=== PATIENT | male | born 1985 | race Caucasian/White ===

== ENCOUNTER 2023-01-20 10:01 | Observation (INO) ==
[2023-01-20 10:59] LABS: Basophils # (auto) 0.06 K/uL (0-0.2); Basophils % (auto) 0.6 %; Eosinophils # (auto) 0.11 K/uL (0-0.50); Eosinophils % (auto) 1.2 %; Hematocrit (blood only) 45.8 % (42.0-52.0); Hemoglobin 15.8 g/dl (14.0-18.0); Immature Granulocytes # (auto) 0.03 K/uL (0.01-0.20); Immature Granulocytes % (auto) 0.3 %; Lymphocytes # (auto) 1.88 K/uL (1.2-3.4); Mean Corpuscular Hemoglobin 30.7 pg (25.0-34.0); Mean Corpuscular Hgb Conc 34.5 g/dL (32.0-36.0); Mean Corpuscular Volume 88.9 fL (80.0-100.0); Mean Platelet Volume 10.8 fL (9.4-12.4); Monocytes # (auto) 0.96 K/uL (0.11-0.59); Monocytes % (auto) 10.2 %; Neutrophils # (auto) 6.35 K/uL (1.40-6.50); Neutrophils % (auto) 67.7 %; Platelet Count 249 K/uL (130-400); RDW Coefficient of Variation 12.7 % (11.5-14.5); RDW Standard Deviation 41.5 fL (36.4-46.3); Red Blood Count 5.15 M/uL (4.70-6.10); White Blood Count 9.39 K/ul (4.8-10.8)
[2023-01-20] MEDS ORDERED: amLODIPine BESYLATE 5 MG TAB PO ONE (11:08)
[2023-01-20] MEDS ORDERED: LOSARTAN POTASSIUM 50 MG TAB PO STA (11:08)
[2023-01-20] MEDS ORDERED: LABETALOL HCL IV 5 MG/ML 20ML IV STA ×2 (11:09→12:06)
[2023-01-20 11:12] LABS: Albumin Globulin Ratio 1.5 (0.9-2); Albumin Level 4.7 gm/dl (3.4-5.0); BUN Creatinine Ratio 17.3 (10-20); Bilirubin,Total 0.6 mg/dl (0.2-1.0); Calcium 9.9 mg/dl (8.6-10.3); Creatinine Clr Calc Pharmacy 54.9 ml/min; Est GFR (African American) 41.4 ml/min; Est GFR (Non-African American) 35.7 ml/min; Globulin 3.2 gm/dl (2.5-4.0); Potassium 4.4 mmol/L (3.5-5.1); Total Protein 7.9 gm/dl (6.0-8.3)
--- NOTE | 2023-01-20 11:19 | XRay Report ---
SINGLE VIEW CHEST CLINICAL HISTORY: Atypical chest pain. FINDINGS: 2 AP, portable, upright chest radiographs are obtained. No prior studies are available for comparison at the time of dictation. The cardiomediastinal silhouette is unremarkable. The lungs and pleural spaces are clear. No pneumothorax is seen. The bony thorax is grossly intact. IMPRESSION: No active disease in the chest. ACT 112: Negative or not required by law. Electronically signed by: Oliverio Campos M.D. 01/20/2023 11:18 AM
[2023-01-20 11:32] LABS: Partial Thromboplastin Ratio 1.2; Partial Thromboplastin Time 32.9 Seconds (21.0-31.0); Prothrombin Time 10.7 Seconds (9.0-12.0)
[2023-01-20 11:34] LABS: Troponin I High Sensitivity 93.2 pg/ml (0-20)
[2023-01-20] MEDS ORDERED: ASPIRIN CHEW 324 MG PO STA (11:44)
--- NOTE | 2023-01-20 12:01 | Emergency Department Note ---
Impression & Plan Precordial chest pain, Hypertension, Elevated troponin, EFREN (acute kidney injury) ED Provider Note NAME: ZHAO THOMAS AGE: 37 SEX: M : 1985 ARRIVES VIA: Walk-In INFORMANT: [Patient] ED PROVIDER(S): [Oliverio Mc MD] CHIEF COMPLAINT: Chest pain HISTORY OF PRESENT ILLNESS: The patient is a 37-year-old male who has had 10 days of a pulsating headache that is of 4-6 on a scale of 1-10. He states that for the last 2 days, he has had some chest pain that goes into his arms and neck. He did vomit once. He took some aspirin and Tylenol which helped. He has had fatigue. He does think his symptoms are worse with exertion. There has been no fever, no chills or cough. He did run out of his blood pressure medication 4-5 months ago. He was on amlodipine and losartan. For the last 2 days, the patient has been taking propranolol. He uses this as needed for anxiety. It has not helped his blood pressure. PMHx/PSHx: See Below SOCIAL HISTORY: See Below. PHYSICAL EXAM: GENERAL: Patient is in no acute distress. HEENT: No acute trauma, normocephalic atraumatic, mucous membranes moist, no nasal congestion. NECK: No stridor, no adenopathy, no meningismus, trachea is midline. LUNGS: Clear to auscultation bilaterally, no wheeze, no rhonchi, breath sounds equal. HEART: Without murmurs gallops or rubs, regular rate and rhythm. ABDOMEN: Soft, nontender, bowel sounds positive, no peritonitis. EXTREMITIES: No cyanosis or edema, full range of motion of all the joints without pain or difficulty, no signs for acute trauma. NEUROLOGIC: Oriented x 3, no acute motor or sensory deficits, no focal weakness. SKIN: No rash, no jaundice, no diaphoresis. DIFFERENTIAL DIAGNOSIS: Uncontrolled hypertension, LA, cardiac ischemia, aortic dissection, musculoskeletal pain, among others. EMERGENCY DEPARTMENT COURSE/PROCEDURES: Prior/Outside records reviewed: Family practice note. ECG per my interpretation: Indication was chest pain. The ECG shows a normal sinus rhythm with a rate of 81. There is no ST elevation, no PVCs. The QTc is 406. Continuous Cardiac Monitoring per my interpretation: An order was placed for continuous cardiac monitoring. The monitor shows a rate of 76 with normal sinus rhythm. Critical Care Note: I have personally spent 43 minutes of critical care time in the direct management of this patient. This includes bedside care, interpretation of diagnostic studies, and testing, discussion with consultants, patient, and family members, and other required patient management activities. This 43 minutes is in excess of all separately billable procedures. MEDICAL DECISION MAKING: There is no leukocytosis or concerning anemia. There is a normal platelet count. No concerning coagulopathy. Patient does have some mild acute kidney injury with a creatinine of 2.26. This is above his baseline creatinine value. No electrolyte abnormality in need of emergent correction. ECG shows a normal sinus rhythm, no ST elevation. Cardiac enzyme testing x1 is elevated, the troponin elevation could be secondary to the higher blood pressure, his renal failure or potentially cardiac injury. Chest film per my review did not show mediastinal widening, pneumonia or pneumothorax. The patient received oral amlodipine and oral losartan. He was given IV labetalol for his elevated blood pressure, a second dose of IV labetalol was given. He was given oral aspirin. The patient presents with chest pain and higher blood pressure. He does have an elevated troponin. Given his findings, given his presentation, a hospital stay is warranted. I spoke with the patient and case management, the on-call hospitalist was consulted. DISPOSITION: Patient's presentation and findings warrant a hospital stay. Past Med/Surg History Medical History Polycystic kidney Surgical History S/P wisdom tooth extraction Family History Grandmother (Paternal) Stroke Grandfather (Paternal) Stroke Mother PKD (polycystic kidney disease) Denies family history of Ovarian cancer Prostate cancer Myocardial infarction Breast cancer Colorectal cancer Social History Smoking Status: Never smoker Second Hand Exposure: No; Do You Dip or Chew Tobacco: No; Hx Alcohol Use: Yes Alcohol type: beer Alcohol Intake Frequency: 2-4 x/Month Hx Substance Use: No Preferred Language: Bahraini Communication Ability: Effective Visual Impairment: No Limitations Hearing Ability: Normal Media Relations Intern Required: No Beliefs That Will Affect Care: None marital status: Current Living Situation: Family current occupational status: employed 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 Feels Safe at Home: Yes Safety Concerns: Feels Safe At This Time Childhood Exposure to Second-Hand Smoke: No Diet: regular caffeine: Yes during the past year weight has: remained stable Dental Care, Regularly: No Physical Activity Frequency: Daily Seatbelt Use: always Sunscreen Use: Yes Assistive Devices: Glasses Allergies Allergies Allergy/AdvReac Type Severity Reaction Status Date / Time meperidine [From Demerol] AdvReac Unknown Hives Verified 01/20/23 11:45 Home Meds Home Medications Medication Instructions Recorded Confirmed propranolol 20 mg tablet 20 mg PO DAILY PRN Anxiety 01/20/23 01/20/23 Previous Rx's Medication Instructions Recorded losartan 100 mg tablet 100 mg PO DAILY #90 tabs 08/22/22 paroxetine HCl 40 mg tablet 40 mg PO BID #180 tabs 08/26/22 amlodipine 10 mg tablet 10 mg PO DAILY #90 tabs 10/02/22 Results & Data (ED) Vital Signs Vital Signs - 24 hr 01/20/23 10:13 01/20/23 10:29 01/20/23 10:29 Temperature 36.1 C L Temperature Source Temporal Artery Scan Pulse Rate 86 86 Pulse Rate from SpO2 Sensor Pulse Rhythm Regular Regular Pulse Strength Normal Respiratory Rate 20 20 Respiratory Effort / Characteristics Non-Labored Spontaneous Respiratory Depth Normal Respiratory Pattern Regular Blood Pressure 191/141 H Blood Pressure Mean 157 Blood Pressure Position Sitting Pulse Oximetry 98 98 98 Oxygen Delivery Method Room Air Room Air Room Air Sepsis Recent Fever Within 48 Hours No Sepsis New/Unexplained Change in Mental Status No Sepsis Action Taken by Nursing No Action Required 01/20/23 10:31 01/20/23 10:38 01/20/23 10:49 Temperature Temperature Source Pulse Rate 69 73 Pulse Rate from SpO2 Sensor 74 Pulse Rhythm Pulse Strength Respiratory Rate 16 Respiratory Effort / Characteristics Non-Labored Spontaneous Respiratory Depth Normal Respiratory Pattern Blood Pressure 171/122 H Blood Pressure Mean 138 Blood Pressure Position Pulse Oximetry 98 Oxygen Delivery Method Room Air Sepsis Recent Fever Within 48 Hours Sepsis New/Unexplained Change in Mental Status Sepsis Action Taken by Nursing 01/20/23 11:42 01/20/23 11:00 01/20/23 11:30 Temperature Temperature Source Pulse Rate 76 75 73 Pulse Rate from SpO2 Sensor 75 74 Pulse Rhythm Pulse Strength Respiratory Rate 17 21 Respiratory Effort / Characteristics Respiratory Depth Respiratory Pattern Blood Pressure 169/133 H 166/124 H 169/133 H Blood Pressure Mean 138 145 Blood Pressure Position Pulse Oximetry 96 98 Oxygen Delivery Method Sepsis Recent Fever Within 48 Hours Sepsis New/Unexplained Change in Mental Status Sepsis Action Taken by Nursing 01/20/23 12:00 01/20/23 12:05 01/20/23 12:32 Temperature Temperature Source Pulse Rate 69 77 Pulse Rate from SpO2 Sensor 68 77 Pulse Rhythm Pulse Strength Respiratory Rate 20 15 Respiratory Effort / Characteristics Respiratory Depth Respiratory Pattern Blood Pressure 167/125 H 186/143 H 177/128 H Blood Pressure Mean 139 157 Blood Pressure Position Pulse Oximetry 96 99 Oxygen Delivery Method Sepsis Recent Fever Within 48 Hours Sepsis New/Unexplained Change in Mental Status Sepsis Action Taken by Nursing 01/20/23 12:00 01/20/23 12:30 01/20/23 13:24 Temperature Temperature Source Pulse Rate 72 74 Pulse Rate from SpO2 Sensor 70 Pulse Rhythm Pulse Strength Respiratory Rate 22 12 Respiratory Effort / Characteristics Respiratory Depth Respiratory Pattern Blood Pressure 167/125 H 177/128 H 188/134 H Blood Pressure Mean 144 152 Blood Pressure Position Pulse Oximetry 96 Oxygen Delivery Method Sepsis Recent Fever Within 48 Hours Sepsis New/Unexplained Change in Mental Status Sepsis Action Taken by [facility] Medications Current Medication List: was personally reviewed by me Laboratory Data Attestation: I reviewed the patient's lab results. 01/20/23 10:20 01/20/23 10:20 Lab Results 01/20/23 01/20/23 01/20/23 Range/Units 10:20 10:20 10:20 WBC 9.39 (4.8-10.8) K/ul RBC 5.15 (4.70-6.10) M/uL Hgb 15.8 (14.0-18.0) g/dl Hct 45.8 (42.0-52.0) % MCV 88.9 (80.0-100.0) fL MCH 30.7 (25.0-34.0) pg MCHC 34.5 (32.0-36.0) g/dL RDW Std Deviation 41.5 (36.4-46.3) fL RDW Coeff of Arnie 12.7 (11.5-14.5) % Plt Count 249 (130-400) K/uL MPV 10.8 (9.4-12.4) fL Immature Gran % (Auto) 0.3 % Neut % (Auto) 67.7 % Lymph % (Auto) 20.0 % [place] % (Auto) 10.2 % Eos % (Auto) 1.2 % Baso % (Auto) 0.6 % Neut # (Auto) 6.35 (1.40-6.50) K/uL Lymph # (Auto) 1.88 (1.2-3.4) K/uL [place] # (Auto) 0.96 H (0.11-0.59) K/uL Eos # (Auto) 0.11 (0-0.50) K/uL Baso # (Auto) 0.06 (0-0.2) K/uL Immature Gran # (Auto) 0.03 (0.01-0.20) K/uL PT 10.7 (9.0-12.0) Seconds INR 1.0 (0.9-1.1) APTT 32.9 H (21.0-31.0) Seconds PTT Ratio 1.2 Sodium 137 (136-145) mmol/L Potassium 4.4 (3.5-5.1) mmol/L Chloride 105 (98-107) mmol/L Carbon Dioxide 26 (21-32) mmol/L Anion Gap 6 (3-11) BUN 39 H (6-23) mg/dl Creatinine 2.26 H (0.6-1.4) mg/dl Est Cr Clr Drug Dosing 54.9 ml/min Est GFR ( Amer) 41.4 ml/min Est GFR (Non-Af Amer) 35.7 ml/min BUN/Creatinine Ratio 17.3 (10-20) Glucose 93 (70-99(Fasting)) mg/dl Calcium 9.9 (8.6-10.3) mg/dl Total Bilirubin 0.6 (0.2-1.0) mg/dl AST 21 (13-39) U/L ALT 17 (7-52) U/L Alkaline Phosphatase 70 (34-104) U/L Troponin I High Sens 93.2 H* (0-20) pg/ml Total Protein 7.9 (6.0-8.3) gm/dl Albumin 4.7 (3.4-5.0) gm/dl Globulin 3.2 (2.5-4.0) gm/dl Albumin/Globulin Ratio 1.5 (0.9-2) 01/20/23 Range/Units 12:55 WBC (4.8-10.8) K/ul RBC (4.70-6.10) M/uL Hgb (14.0-18.0) g/dl Hct (42.0-52.0) % MCV (80.0-100.0) fL MCH (25.0-34.0) pg MCHC (32.0-36.0) g/dL RDW Std Deviation (36.4-46.3) fL RDW Coeff of Arnie (11.5-14.5) % Plt Count (130-400) K/uL MPV (9.4-12.4) fL Immature Gran % (Auto) % Neut % (Auto) % Lymph % (Auto) % [place] % (Auto) % Eos % (Auto) % Baso % (Auto) % Neut # (Auto) (1.40-6.50) K/uL Lymph # (Auto) (1.2-3.4) K/uL [place] # (Auto) (0.11-0.59) K/uL Eos # (Auto) (0-0.50) K/uL Baso # (Auto) (0-0.2) K/uL Immature Gran # (Auto) (0.01-0.20) K/uL PT (9.0-12.0) Seconds INR (0.9-1.1) APTT (21.0-31.0) Seconds PTT Ratio Sodium (136-145) mmol/L Potassium (3.5-5.1) mmol/L Chloride (98-107) mmol/L Carbon Dioxide (21-32) mmol/L Anion Gap (3-11) BUN (6-23) mg/dl Creatinine (0.6-1.4) mg/dl Est Cr Clr Drug Dosing ml/min Est GFR ( Amer) ml/min Est GFR (Non-Af Amer) ml/min BUN/Creatinine Ratio (10-20) Glucose (70-99(Fasting)) mg/dl Calcium (8.6-10.3) mg/dl Total Bilirubin (0.2-1.0) mg/dl AST (13-39) U/L ALT (7-52) U/L Alkaline Phosphatase (34-104) U/L Troponin I High Sens 79.7 H* D (0-20) pg/ml Total Protein (6.0-8.3) gm/dl Albumin (3.4-5.0) gm/dl Globulin (2.5-4.0) gm/dl Albumin/Globulin Ratio (0.9-2) Administered Medications Labetalol HCl (Labetalol Hcl Iv 5 Mg/Ml 20ml) 10 mg IV Q1H PRN PRN Reason: sBP > 160 or dBP > 110 Stop: 02/19/23 16:59 Last Admin: 01/20/23 19:11 Dose: 10 mg Documented By: HOSEA Co-signed By: ROSAURA Paroxetine HCl (Paroxetine Hcl 20 Mg Tab) 40 mg PO BID DIANA Stop: 02/19/23 20:59 Last Admin: 01/20/23 19:42 Dose: 40 mg Documented By: HOSEA Discontinued Medications Amlodipine Besylate (Amlodipine Besylate 5 Mg Tab) 10 mg PO NOW ONE Stop: 01/20/23 11:09 Last Admin: 01/20/23 11:44 Dose: 10 mg Documented By: HENRIETTA Aspirin (Aspirin Chew 324 Mg) 324 mg PO NOW STA Stop: 01/20/23 11:45 Last Admin: 01/20/23 11:48 Dose: 324 mg Documented By: HENRIETTA Labetalol HCl (Labetalol Hcl Iv 5 Mg/Ml 20ml) 10 mg IV NOW STA Stop: 01/20/23 11:10 Last Admin: 01/20/23 11:42 Dose: 10 mg Documented By: HENRIETTA Co-signed By: LATIA Labetalol HCl (Labetalol Hcl Iv 5 Mg/Ml 20ml) 10 mg IV NOW STA Stop: 01/20/23 12:07 Last Admin: 01/20/23 12:32 Dose: 10 mg Documented By: HENRIETTA Co-signed By: LATIA Losartan Potassium (Losartan Potassium 50 Mg Tab) 100 mg PO NOW STA Stop: 01/20/23 11:09 Last Admin: 01/20/23 11:45 Dose: 100 mg Documented By: HENRIETTA Imaging Data Radiologist's Impression: Chest X-Ray 01/20/23 10:29 SINGLE VIEW CHEST CLINICAL HISTORY: Atypical chest pain. FINDINGS: 2 AP, portable, upright chest radiographs are obtained. No prior studies are available for comparison at the time of dictation. The cardiomediastinal silhouette is unremarkable. The lungs and pleural spaces are clear. No pneumothorax is seen. The bony thorax is grossly intact. IMPRESSION: No active disease in the chest. ACT 112: Negative or not required by law. Electronically signed by: Oliverio Campos M.D. 01/20/2023 11:18 AM Discharge Plan Visit Data Chief Complaint: Chest Pain Stated Complaint: CHEST PAIN INTO ARMS,HEADACHE,HIGH BP,NAUSEA, ED Provider: Olivreio Mc Discharge Problem: Precordial chest pain, Hypertension, Elevated troponin, EFREN (acute kidney injury) Patient Disposition: Admitted As Inpatient Condition: Fair Discharge Instructions Interventions: ED Discharge Assessment Last Done: 01/20/23 15:37
--- NOTE | 2023-01-20 13:03 | History & Physical Report ---
Date of Service January 20, 2023 Assessment & Plan (1) Hypertension: Plan: Restart his usual Losartan 100mg PO and amlodipine 10mg PO Labetalol 10mg IV q1h PRN for sBP > 160 or sBP > 110 while waiting for above medications to work Consult nephrology - for ongoing recommendations in setting of ADPKD, pt request change of service to [facility] nephrology (2) Polycystic kidney disease: Plan: Will defer decision regarding restart tolvaptan to nephrology (3) Generalized anxiety disorder: Plan: Continue paroxetine (4) Elevated troponin: Plan: Repeat pending. 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 He reports being on losartan for the last 10 years and amlodipine for 6-7 years but stopped taking these about 5 months ago after running out and not getting them refilled. Previously also on Tolvaptan but non- compliant with outpatient lab tests. He reports 8 days ago having progressively worsening headache, neck stiffness and pain. Acetaminophen has been helping his headache. On Friday he woke up in bed with chest pain, panic and fatigue and vomited following this. Chest pain has been constant since then, no radiation, although he took some aspirin which helped with the pain. No current chest pain unless he breaths in then it is 6/10 severity. Called his PCP today and recommend coming to the ER. He takes propranolol for anxiety but has been staking it BP always high - been on losartan for 10 years. Amlodipine - 6-7 years. Tolvaptan - started but took off this, stopped taking this three months ago. OFF losartan and amlodipine - stopped at 5 months Takes propranolol as need for anxiety - taking the last few days. Quit smoking 15 years ago. No diabetes Allergies Allergy/AdvReac Type Severity Reaction Status Date / Time meperidine [From Demerol] AdvReac Unknown Hives Verified 01/20/23 11:45 Home Medications Medication Instructions Recorded Confirmed Type losartan 100 mg tablet 100 mg PO DAILY #90 tabs 08/22/22 01/20/23 Rx paroxetine HCl 40 mg tablet 40 mg PO BID #180 tabs 08/26/22 01/20/23 Rx amlodipine 10 mg tablet 10 mg PO DAILY #90 tabs 10/02/22 01/20/23 Rx propranolol 20 mg tablet 20 mg PO DAILY PRN Anxiety 01/20/23 01/20/23 History Past Med/Surg History Medical History Polycystic kidney Surgical History S/P wisdom tooth extraction Family History Grandmother (Paternal) Stroke Grandfather (Paternal) Stroke Mother PKD (polycystic kidney disease) Denies family history of Ovarian cancer Prostate cancer Myocardial infarction Breast cancer Colorectal cancer Social History Smoking Status: Never smoker Second Hand Exposure: No; Do You Dip or Chew Tobacco: No; Hx Alcohol Use: Yes Alcohol type: beer Alcohol Intake Frequency: 2-4 x/Month Hx Substance Use: No Preferred Language: [place]ian Communication Ability: Effective Visual Impairment: No Limitations Hearing Ability: Normal Board Certified Orthodontist Required: No Beliefs That Will Affect Care: None marital status: Current Living Situation: Family current occupational status: employed 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 Feels Safe at Home: Yes Safety Concerns: Feels Safe At This Time Childhood Exposure to Second-Hand Smoke: No Diet: regular caffeine: Yes during the past year weight has: remained stable Dental Care, Regularly: No Physical Activity Frequency: Daily Seatbelt Use: always Sunscreen Use: Yes Assistive Devices: Glasses Review of Systems Review of Systems: All systems reviewed & are unremarkable except as noted in HPI & below Physical Exam Constitutional: WD/WN, vitals as above Respiratory: normal respiratory effort, lungs clear to auscultation Cardiovascular: RRR, no murmur, no edema Gastrointestinal (Abdomen): normal bowel sounds, soft, nontender, no hepatosplenomegaly Psychiatric: A+Ox3, euthymic affect Genitourinary: no CVA tenderness Results & Data Results & Data Vital Signs (Past 12 Hours) Vital Signs Temp Pulse Resp BP Pulse Ox O2 Del Method 01/20/23 12:32 177/128 H 01/20/23 12:05 77 15 186/143 H 99 01/20/23 12:00 69 20 167/125 H 96 01/20/23 11:30 73 21 169/133 H 98 01/20/23 11:00 75 17 166/124 H 96 01/20/23 11:42 76 169/133 H 01/20/23 10:49 73 16 171/122 H 98 01/20/23 10:38 69 01/20/23 10:31 Room Air 01/20/23 10:29 86 20 98 Room Air 01/20/23 10:29 98 Room Air 01/20/23 10:13 36.1 C L 86 20 191/141 H 98 Room Air Laboratory Results Abnormal lab results 01/20/23 01/20/23 01/20/23 Range/Units 10:20 10:20 10:20 [place] # (Auto) 0.96 H (0.11-0.59) K/uL APTT 32.9 H (21.0-31.0) Seconds BUN 39 H (6-23) mg/dl Creatinine 2.26 H (0.6-1.4) mg/dl Troponin I High Sens 93.2 H* (0-20) pg/ml Diagnostic Findings SINGLE VIEW CHEST CLINICAL HISTORY: Atypical chest pain. FINDINGS: 2 AP, portable, upright chest radiographs are obtained. No prior studies are available for comparison at the time of dictation. The cardiomediastinal silhouette is unremarkable. The lungs and pleural spaces are clear. No pneumothorax is seen. The bony thorax is grossly intact. IMPRESSION: No active disease in the chest. Medications Administered ER Medications Given: Losartan 100mg PO Amlodipine 10mg PO Labetalol 10mg IV x2 Aspirin 324mg PO ECG Rate (beats per minute): 81 Rhythm: normal sinus Findings: no acute ischemic change Comparison ECG Date: no prior available Code Status & VTE Plan Code Status Full VTE Prophylaxis Plan VTE Prophylaxis will be ordered: No PG Care Time/CCT Total # of Minutes Spent Total Time Spent with Patient: Total time spent is greater than 50% in coordination of care (as documented) at patient's floor/unit and/or counseling patient: Coding Level of Care Code 32719 INT INP/OBS CARE MIN Diagnoses Hypertension I10 Polycystic kidney disease Q61.3 Generalized anxiety disorder F41.1 Elevated troponin R77.8 Hypertensive emergency I16.1
[2023-01-20] MEDS: LABETALOL HCL IV 5 MG/ML 20ML IV PRN (19:11)
[2023-01-20] MEDS: PARoxetine HCL 20 MG TAB PO SCH (19:42)
[2023-01-20] MEDS ORDERED: ACETAMINOPHEN 325 MG TAB PO PRN (20:09)
[2023-01-21] MEDS: LABETALOL HCL IV 5 MG/ML 20ML IV PRN (03:05)
[2023-01-21] MEDS: PARoxetine HCL 20 MG TAB PO SCH (08:21)
[2023-01-21] MEDS ORDERED: amLODIPine BESYLATE 5 MG TAB PO SCH (09:00)
[2023-01-21] MEDS ORDERED: LOSARTAN POTASSIUM 50 MG TAB PO SCH (09:00)
--- NOTE | 2023-01-21 11:43 | Discharge Summary ---
Date of Service January 21, 2023 Admission HPI Per Admitting Provider Pritesh Dyson is a 37 year old male with autosomal dominant polycystic kidney disease who presents to the ER due to headache, high blood pressure, neck and chest pain. He reports being on losartan for the last 10 years and amlodipine for 6-7 years but stopped taking these about 5 months ago after running out and not getting them refilled. Previously also on Tolvaptan but non- compliant with outpatient lab tests. He reports 8 days ago having progressively worsening headache, neck stiffness and pain. Acetaminophen has been helping his headache. On Friday he woke up in bed with chest pain, panic and fatigue and vomited following this. Chest pain has been constant since then, no radiation, although he took some aspirin which helped with the pain. No current chest pain unless he breaths in then it is 6/10 severity. Called his PCP today and recommend coming to the ER. He takes propranolol for anxiety but has been staking it BP always high - been on losartan for 10 years. Amlodipine - 6-7 years. Tolva ptan - started but took off this, stopped taking this three months ago. OFF losartan and amlodipine - stopped at 5 months Takes propranolol as need for anxiety - taking the last few days. Quit smoking 15 years ago. No diabetes Discharge Data Allergies Allergy/AdvReac Type Severity Reaction Status Date / Time meperidine [From Demerol] AdvReac Unknown Hives Verified 01/20/23 11:45 Consultations 01/20/23 12:07 ED Decision to Admit Stat 01/20/23 17:00 Consult Nephrology Routine Hospital Course (1) Hypertension: Restart his usual Losartan 100mg PO and amlodipine 10mg PO Labetalol 10mg IV q1h PRN for sBP > 160 or sBP > 110 while waiting for above medications to work Consult nephrology - for ongoing recommendations in setting of ADPKD, pt request change of service to [facility] nephrology (2) Polycystic kidney disease: Will defer decision regarding restart tolvaptan to nephrology (3) Generalized anxiety disorder: Continue paroxetine (4) Elevated troponin: Repeat pending. TTE Low suspicion of ACS per history and mild elevation in troponin (5) Hypertensive emergency: Plan VTE Prophylaxis - low risk Diet - heart healthy Disposition - observation status to PCU Discharge Plan Discharge Items Patient Disposition: Against Medical Advice Reason For Visit: HYPERTENSIVE EMERGENCY Discharge Diagnosis: 1. Hypertensive emergency - resolved 2. 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 Chest pain 2nd to #1 Condition on Discharge: Fair Activity: Resume your previous activity Non-emergency contact: Primary Care Provider and Supervisor [employer] Call non-emergency contact if: you have any medication questions and your symptoms worsen Follow-up/Referrals: Baldomero Borjas, [Primary Care Provider] - Diet: Low Sodium (2gm) Addtl Attending Provider Instructions: Patient left against medical advice. AMA paperwork completed by patient and nursing staff. [facility] Nephrology consultation was pending; due to leaving AMA prior to being seen by nephrology he will thus need to follow-up with them in the outpatient clinic. Prescriptions for his anti-hypertensives were not given at time of his AMA. Will call in a 7 day supply of each blood pressure medication. He will need follow-up with his PCP & [facility] for further refills and management. Pending Studies at Discharge: No Stand-Alone Forms: [facility] [employer], Smoking Cessation Medications and DC Order Prescriptions: Continued losartan 100 mg tablet 100 mg PO DAILY Qty: 90 3RF paroxetine HCl 40 mg tablet 40 mg PO BID Qty: 180 1RF amlodipine 10 mg tablet 10 mg PO DAILY Qty: 90 3RF propranolol 20 mg tablet 20 mg PO DAILY PRN (Reason: Anxiety) Discharge Orders: Left Against Medical Advice (Routine); Ordered 01/21/23 Ordered By: Magdaleno Dyson Admission Data Admit Date/Time: 01/20/23 13:29 Attending Provider: Magdaleno Dyson Admit Provider: Magdaleno Avitia Primary Care Provider: Baldomero Borjas Other Providers: Magdaleno Avitia ; Olegario Moore Other Interventions: Discharge Summary Assessment (RN) Last Done: 01/21/23 11:15 Coding Diagnoses Hypertension I10 Polycystic kidney disease Q61.3 Generalized anxiety disorder F41.1 Elevated troponin R77.8 Hypertensive emergency I16.1
--- NOTE | 2023-01-21 18:44 | XCELERA ---
[id number]
--- NOTE | 2023-01-22 05:56 | Electrocardiogram Report ---
Test Reason : Blood Pressure : / mmHG Vent. Rate : 081 BPM Atrial Rate : 081 BPM P-R Int : 162 ms QRS Dur : 076 ms QT Int : 350 ms P-R-T Axes : 064 -23 035 degrees QTc Int : 406 ms Normal sinus rhythm Normal ECG No previous ECGs available Confirmed by Jose Lopez ([id number]) on 01/22/2023 5:55:36 AM Referred By: REFERRED SELF Confirmed By:Jose Lopez
== END 2023-01-21 11:45 | disposition left against medical advice (07) ==
LOC: ED 10:01 → 2S 10:01 → SUATTDRO 13:29 → 2S 15:37